=== PATIENT | male | born 1965 | race Two or more races ===

== ENCOUNTER 2024-02-25 09:25 | Inpatient (IN) | payer OTHER ==
[~2024-02-25] VITALS: Ht 177.8 cm; Wt 72.6 kg
[2024-02-25] MEDS ORDERED: ENBREL50 MG/1 M1 SQ (10:01)
--- NOTE | 2024-02-25 10:01 | NUR ---
PTE ALERTA Y ORIENTADO X3 REFIERE URIEL SIDO ENVIADO POR EL DR. LAINEZ A CHULA DE EMERGENCIAS PARA EVALUACION Y POSIBLE ADMISION DEBIDO A EPISODIO DE DIVERTICULITIS. AL MOMENTO DE TRIAGE PTE NIEGA VOMITOS O DIARREAS RECIENTES, NOTIFICA DOLOR ABDOMINAL. SE MIDEN SV Y SE UBICA.
[2024-02-25] MEDS ORDERED: PIPERACILLIN/TAZOBACTAM SODIUM 3.375 GM VIAL IV ONE ×3 (10:15→11:30)
[2024-02-25] MEDS ORDERED: 0.9 % SODIUM CHLORIDE 1,000 ML IV SCH (10:15)
--- NOTE | 2024-02-25 10:59 | NUR ---
PACIENTE ALERTA Y ORIENTADO X3. RN BROWN EDUCA A PACIENTE SOBRE PROCESO DE MAXIM DE MUESTRAS, CANALIZACION Y ADMINISTRACION DE MEDICAMENTOS, REFIERE ENTENDER. SE EJECUTAN ORDENES BAJO MEDIDAS ASEPTICAS. PENDIENTE A CONSULTA CON CIRUGIA.
[2024-02-25 11:25] LABS: HEMATOCRIT 42.8 % (39.0-48.0); HEMOGLOBIN 14.9 g/dL (13-16.00); MEAN CELL VOLUME 95.6 fL (80.0-100.00); MEAN CORPUSCULAR HEMOGLOBIN 33.2 pg (27.00-32.0); MEAN CORPUSCULAR HGB CONC 34.7 g/dl (32.0-36.0); PLATELET COUNT 260 K/uL (150-450); RED BLOOD COUNT 4.48 M/uL (4.00-6.00)
[2024-02-25] MEDS ORDERED: SODIUM CHLORIDE 0.45 % 1,000 ML IV SCH (11:30)
[2024-02-25] MEDS ORDERED: ONDANSETRON HCL 4 MG in 0.9 % SODIUM CHLORIDE 50 ML IV PRN (11:30)
[2024-02-25] MEDS ORDERED: PIPERACILLIN/TAZOBACTAM SODIUM 3.375 GM in DEXTROSE 5 % IN WATER 100 ML IV SCH (12:00)
[2024-02-25] MEDS ORDERED: FAMOTIDINE/PF 20 MG/2 ML VIAL ONE (12:04)
[2024-02-25 12:26] LABS: ALBUMIN 3.2 gm/dL (3.4-5.0); BILIRUBIN TOTAL 2.42 mg/dL (0.3-1.2); BILIRUBIN,CONJUGATED 0.5 mg/dL (0.0-0.2); BILIRUBIN,UNCONJUGATED 1.92 mg/dL (0.0-0.6); CALCIUM 9.3 mg/dL (8.5-10.1); CREATININE SERUM 1.02 mg/dL (0.70-1.30); GFR 74.25; POTASSIUM 4.43 mEq/L (3.5-5.1); TOTAL PROTEIN 6.7 gm/dL (6.4-8.2)
[2024-02-25] MEDS ORDERED: LACTOBACILLUS ACIDOPHILUS 1 CAP CAP PO ONE (13:16)
[2024-02-25] MEDS ORDERED: ENOXAPARIN SODIUM 40 MG/0.4 ML SYRINGE SUBCUTANEO ONE (13:16)
[2024-02-25] MEDS ORDERED: ENOXAPARIN SODIUM 40 MG/0.4 ML SYRINGE SUBCUTANEO NR (13:30)
[2024-02-25 14:15] VITALS: BP 100/67; O2SAT 95
[2024-02-25 15:12] LABS: PH,URINE 7.5 (5.0-8.0); URINE APPEARANCE Clear; URINE BILIRRUBIN Negative (NEGATIVE); URINE BLOOD Negative; URINE COLOR Yellow; URINE GLUCOSE Negative (NEGATIVE); URINE KETONE Negative (NEGATIVE); URINE LEUKOCYTE Negative; URINE NITRATE Negative; URINE PROTEIN Negative (NEGATIVE); URINE UROBILINOGEN 0.2 E.U./dl
[2024-02-25 15:16] LABS: URINE BACTERIA 6.1 uL (0.0-1933)
[2024-02-25 15:25] LABS: URINE EPITHELIAL CELLS 0.6 uL (0.0-38.8); URINE RBC 1.1 uL (0.0-20.8); URINE WBC 1.7 uL (0.0-23.2)
[2024-02-25 16:37] VITALS: BP 102/68; O2SAT 97
[2024-02-25] MEDS ORDERED: LACTOBACILLUS ACIDOPHILUS 1 CAP CAP PO SCH (17:00)
[2024-02-25] MEDS ORDERED: FAMOTIDINE/PF 20 MG in 0.9 % SODIUM CHLORIDE 8 ML IV PUSH SCH (17:00)
[2024-02-25] MEDS ORDERED: AMINO ACIDS 4.25 %/DEXTROSE 5% 1,000 ML PERIFERAL SCH (17:00)
[2024-02-26 00:42] VITALS: BP 116/69; O2SAT 98
[2024-02-26 07:00] LABS: HEMATOCRIT 41.7 % (39.0-48.0); HEMOGLOBIN 14.4 g/dL (13-16.00); MEAN CELL VOLUME 95.6 fL (80.0-100.00); MEAN CORPUSCULAR HEMOGLOBIN 33.1 pg (27.00-32.0); MEAN CORPUSCULAR HGB CONC 34.6 g/dl (32.0-36.0); PLATELET COUNT 248 K/uL (150-450); RED BLOOD COUNT 4.37 M/uL (4.00-6.00); RED CELL DISTRIBUTION WIDTH 13.1 % (11.5-14.5)
[2024-02-26 07:41] LABS: ALBUMIN 3.1 gm/dL (3.4-5.0); BILIRUBIN TOTAL 2.23 mg/dL (0.3-1.2); CALCIUM 9.2 mg/dL (8.5-10.1); CREATININE SERUM 0.95 mg/dL (0.70-1.30); GFR 80.6; GLOBULINA 3.4 G/DL (2.4-3.5); POTASSIUM 4.9 mEq/L (3.5-5.1); TOTAL PROTEIN 6.5 gm/dL (6.4-8.2)
[2024-02-26 07:47] LABS: C-REACTIVE PROTEIN 4.27 MG/DL (0.00-0.29)
[2024-02-26 08:05] VITALS: BP 119/69; O2SAT 99
[2024-02-26] MEDS ORDERED: ENOXAPARIN SODIUM 40 MG/0.4 ML SYRINGE SUBCUTANEO SCH (09:00)
[2024-02-26] MEDS ORDERED: VANCOMYCIN HCL 1,000 MG VIAL ONE ×2 (15:35→23:52)
[2024-02-26 16:15] VITALS: BP 107/66; O2SAT 98
[2024-02-26] MEDS ORDERED: VANCOMYCIN HCL 1,000 MG VIAL IV SCH (17:00)
[2024-02-26] MEDS ORDERED: MEROPENEM 500 MG/VIAL VIAL IV SCH (18:00)
[2024-02-27 00:23] VITALS: BP 122/65; O2SAT 100
[2024-02-27 08:43] VITALS: BP 113/60; O2SAT 99
[2024-02-27] MEDS ORDERED: ACETAMINOPHEN 500 MG GEL..CAP PO STA (11:10)
[2024-02-27] MEDS ORDERED: ACETAMINOPHEN 500 MG GEL..CAP PO PRN (11:15)
[2024-02-27] MEDS ORDERED: VANCOMYCIN HCL 1,000 MG VIAL ONE ×2 (14:19→23:35)
[2024-02-27 16:00] VITALS: BP 109/58; O2SAT 95
[2024-02-27] MEDS ORDERED: HYOSCYAMINE SULFATE 0.125 MG TAB.SUBL SL SCH (17:00)
[2024-02-28] VITALS: BP 111/72; O2SAT 96
[2024-02-28 07:44] LABS: HEMATOCRIT 40.5 % (39.0-48.0); HEMOGLOBIN 14.1 g/dL (13-16.00); MEAN CELL VOLUME 94.6 fL (80.0-100.00); MEAN CORPUSCULAR HEMOGLOBIN 32.9 pg (27.00-32.0); MEAN CORPUSCULAR HGB CONC 34.8 g/dl (32.0-36.0); PLATELET COUNT 240 K/uL (150-450); RED BLOOD COUNT 4.28 M/uL (4.00-6.00); RED CELL DISTRIBUTION WIDTH 12.9 % (11.5-14.5)
[2024-02-28 08:38] LABS: ALBUMIN 2.9 gm/dL (3.4-5.0); BILIRUBIN TOTAL 1.75 mg/dL (0.3-1.2); CREATININE SERUM 0.75 mg/dL (0.70-1.30); GFR 105.87; GLOBULINA 3.2 G/DL (2.4-3.5); MAGNESIUM 1.8 mg/dL (1.8-2.4); PHOSPHOROUS 2.9 mg/dL (2.5-4.9); POTASSIUM 4.37 mEq/L (3.5-5.1); TOTAL PROTEIN 6.1 gm/dL (6.4-8.2)
[2024-02-28 08:49] LABS: C-REACTIVE PROTEIN 1.84 MG/DL (0.00-0.29)
[2024-02-28 09:19] VITALS: BP 98/64; O2SAT 96
[2024-02-28] MEDS ORDERED: VANCOMYCIN HCL 1,000 MG VIAL ONE ×2 (14:33→22:55)
[2024-02-28 16:00] VITALS: BP 127/69; O2SAT 96
[2024-02-29 00:55] VITALS: BP 105/60; O2SAT 100
[2024-02-29 07:21] LABS: HEMATOCRIT 39.1 % (39.0-48.0); HEMOGLOBIN 13.9 g/dL (13-16.00); MEAN CELL VOLUME 93.9 fL (80.0-100.00); MEAN CORPUSCULAR HEMOGLOBIN 33.4 pg (27.00-32.0); MEAN CORPUSCULAR HGB CONC 35.5 g/dl (32.0-36.0); PLATELET COUNT 226 K/uL (150-450); RED BLOOD COUNT 4.17 M/uL (4.00-6.00); RED CELL DISTRIBUTION WIDTH 13.1 % (11.5-14.5)
[2024-02-29 07:36] LABS: PROTHROMBIN TIME 10.9 SECONDS (9.0-11.5)
[2024-02-29 07:45] VITALS: BP 1114/78; O2SAT 100
[2024-02-29 08:05] LABS: ALBUMIN 2.8 gm/dL (3.4-5.0); BILIRUBIN TOTAL 1.59 mg/dL (0.3-1.2); BILIRUBIN,CONJUGATED 0.37 mg/dL (0.0-0.2); BILIRUBIN,UNCONJUGATED 1.22 mg/dL (0.0-0.6); CALCIUM 9.2 mg/dL (8.5-10.1); CHOL HDL RATIO 4.3 (0-5.0); CREATININE SERUM 0.83 mg/dL (0.70-1.30); GFR 94.19; GLOBULINA 3.2 G/DL (2.4-3.5); MAGNESIUM 1.8 mg/dL (1.8-2.4); POTASSIUM 4.41 mEq/L (3.5-5.1)
[2024-02-29 09:54] LABS: UREA CLEARANCE 58.5 ML/MIN
[2024-02-29 16:30] VITALS: BP 121/63; O2SAT 97
[2024-02-29] MEDS ORDERED: VANCOMYCIN HCL 5 MG/ML REDILUIDO IV SCH (17:00)
[2024-03-01] VITALS: BP 120/64; O2SAT 98
[2024-03-01 08:05] VITALS: BP 105/68; O2SAT 96
[2024-03-01 19:41] VITALS: BP 115/72; O2SAT 99
[2024-03-02 00:30] VITALS: BP 141/63; O2SAT 100
[2024-03-02 08:28] VITALS: BP 116/56; O2SAT 98
[2024-03-02 16:00] VITALS: BP 118/77; O2SAT 99
[2024-03-03 01:24] VITALS: BP 109/56; O2SAT 98
[2024-03-03 08:00] VITALS: BP 129/67; O2SAT 99
[2024-03-03] MEDS ORDERED: DIATRIZOATE MEGLUMINE, SODIUM 30 ML BOTTLE PO NR (09:15)
[2024-03-03 10:11] LABS: HEMATOCRIT 42.4 % (39.0-48.0); MEAN CELL VOLUME 93.3 fL (80.0-100.00); MEAN CORPUSCULAR HGB CONC 35.4 g/dl (32.0-36.0); PLATELET COUNT 263 K/uL (150-450); RED BLOOD COUNT 4.55 M/uL (4.00-6.00); RED CELL DISTRIBUTION WIDTH 13.2 % (11.5-14.5)
[2024-03-03 11:03] LABS: CREATININE SERUM 0.76 mg/dL (0.70-1.30); GFR 104.27; MAGNESIUM 1.9 mg/dL (1.8-2.4); PHOSPHOROUS 2.4 mg/dL (2.5-4.9); POTASSIUM 4.58 mEq/L (3.5-5.1)
[2024-03-03 11:05] LABS: C-REACTIVE PROTEIN 1.2 MG/DL (0.00-0.29)
[2024-03-03] MEDS ORDERED: POTASSIUM PHOS,M-BASIC-D-BASIC 3 MM/ML VIAL IV NR (14:00)
[2024-03-03 16:00] VITALS: BP 118/70; O2SAT 100
[2024-03-04] VITALS: BP 110/56; O2SAT 97
[2024-03-04 08:00] VITALS: BP 99/75; O2SAT 98
[2024-03-04 17:00] VITALS: BP 106/76; O2SAT 97
[2024-03-05 00:56] VITALS: BP 100/66; O2SAT 100
[2024-03-05 08:00] VITALS: BP 101/69; O2SAT 98
[2024-03-05 17:28] VITALS: BP 125/82; O2SAT 99
[2024-03-06] VITALS: BP 100/67; O2SAT 96
[2024-03-06 08:00] VITALS: BP 98/66; O2SAT 98
[2024-03-06 16:00] VITALS: BP 119/72; O2SAT 98
[2024-03-07] VITALS: BP 93/51; O2SAT 94
[2024-03-07 07:00] LABS: HEMATOCRIT 38.1 % (39.0-48.0); HEMOGLOBIN 13.6 g/dL (13-16.00); MEAN CELL VOLUME 92.1 fL (80.0-100.00); MEAN CORPUSCULAR HEMOGLOBIN 32.9 pg (27.00-32.0); MEAN CORPUSCULAR HGB CONC 35.8 g/dl (32.0-36.0); PLATELET COUNT 229 K/uL (150-450); RED BLOOD COUNT 4.14 M/uL (4.00-6.00); RED CELL DISTRIBUTION WIDTH 13.3 % (11.5-14.5)
[2024-03-07 07:59] LABS: ALBUMIN 2.7 gm/dL (3.4-5.0); BILIRUBIN TOTAL 1.24 mg/dL (0.3-1.2); BILIRUBIN,CONJUGATED 0.27 mg/dL (0.0-0.2); BILIRUBIN,UNCONJUGATED 0.97 mg/dL (0.0-0.6); CALCIUM 9.1 mg/dL (8.5-10.1); CREATININE SERUM 0.71 mg/dL (0.70-1.30); GFR 112.79; MAGNESIUM 1.8 mg/dL (1.8-2.4); POTASSIUM 3.98 mEq/L (3.5-5.1); TOTAL PROTEIN 5.7 gm/dL (6.4-8.2)
[2024-03-07 08:00] VITALS: BP 106/71; O2SAT 96
[2024-03-07 09:39] LABS: INR 1.02; PROTHROMBIN TIME 11.1 SECONDS (9.0-11.5)
[2024-03-07 09:48] LABS: UREA CLEARANCE 60.9 ML/MIN
[2024-03-07 16:00] VITALS: BP 104/66; O2SAT 99
[2024-03-07] MEDS ORDERED: POLYETHYLENE GLYCOL 3350 17 GM BLIST.PACK PO STA (18:07)
[2024-03-08 01:09] VITALS: BP 118/57; O2SAT 100
[2024-03-08 08:00] VITALS: BP 107/70; O2SAT 99
[2024-03-08] MEDS ORDERED: HYOSCYAMINE0.125 M1 SL (08:17)
[2024-03-08] MEDS ORDERED: PEPCID AC20 MG PO (08:17)
== END 2024-03-08 16:52 | disposition home or self-care (01) | DRG 392 ==
LOC: ER 09:27 → SEC-K 12:33 → SURH 12:33
PROVIDERS: Emergency Medicine; Internal Medicine Geriatric Medicine; Internal Medicine Infectious Disease; ADMIT Surgery; ATTEND Surgery
PROC: 02HV33Z Insertion of Infusion Device into Superior Vena Cava, Percutaneous Approach (ICD-10-PCS; 2024-02-25)
PROC: 8E0ZXY6 Isolation (ICD-10-PCS; 2024-02-25)
PROC: BW21ZZZ Computerized Tomography (CT Scan) of Abdomen and Pelvis (ICD-10-PCS; principal; 2024-03-03)
DX: K57.20 Diverticulitis of large intestine with perforation and abscess without bleeding (principal); D84.9 Immunodeficiency, unspecified; E80.4 Gilbert syndrome; K52.9 Noninfective gastroenteritis and colitis, unspecified

== ENCOUNTER 2024-04-07 11:55 | Inpatient (IN) | payer OTHER ==
[~2024-04-07] VITALS: Ht 177.8 cm; Wt 68.9 kg
[~2024-04-07 11:55] MED LIST: ENBREL50 MG/1 M1 SQ; HYOSCYAMINE0.125 M1 SL; PEPCID AC20 MG PO
[2024-04-18] MEDS ORDERED: INTESTINEX680 M1 PO (11:52)
[2024-04-18] MEDS ORDERED: DICY20TA PO (11:53)
[2024-05-09] MEDS ORDERED: CEFTRIAXONE SODIUM 2,000 MG VIAL ONE (08:31)
[2024-05-09] MEDS ORDERED: LIDOCAINE HCL 1%/EPINEPHRINE 20ML VIAL IJ ONE (08:31)
[2024-05-09] MEDS ORDERED: BUPIVACAINE HCL/Mpf 0.5% 10ML VIAL ONE (08:31)
[2024-05-09] MEDS ORDERED: METRONIDAZOLE/SODIUM CHLORIDE 500 MG/100 ML PIGGYBACK IV ONE ×2 (08:32→16:40)
[2024-05-09] MEDS ORDERED: MORPHINE SULFATE 4 MG/ML CARTRIDGE IV PRN (13:00)
[2024-05-09] MEDS ORDERED: HYOSCYAMINE SULFATE 0.125 MG TAB.SUBL SL SCH (13:00)
[2024-05-09] MEDS ORDERED: DEXTROSE 50 % IN WATER 0.5 G/ML DISP.SYRIN IV PRN (13:00)
[2024-05-09] MEDS ORDERED: ONDANSETRON HCL 2 MG/ML VIAL IV PRN (13:00)
[2024-05-09] MEDS ORDERED: 0.9 % SODIUM CHLORIDE 1,000 ML IV SCH (13:00)
[2024-05-09] MEDS ORDERED: OxyCODONE HCL 5 MG TABLET (ROXICODONE) PO PRN (13:00)
[2024-05-09] MEDS ORDERED: MORPHINE SULFATE 4 MG/ML VIAL IV ONE ×3 (13:45→15:00)
[2024-05-09] MEDS ORDERED: ACETAMINOPHEN 500 MG GEL..CAP PO SCH (14:00)
[2024-05-09 14:42] LABS: HEMATOCRIT 40.6 % (39.0-48.0); HEMOGLOBIN 13.6 g/dL (13-16.00); MEAN CELL VOLUME 94.8 fL (80.0-100.00); MEAN CORPUSCULAR HEMOGLOBIN 31.9 pg (27.00-32.0); MEAN CORPUSCULAR HGB CONC 33.6 g/dl (32.0-36.0); PLATELET COUNT 243 K/uL (150-450); RED BLOOD COUNT 4.28 M/uL (4.00-6.00); RED CELL DISTRIBUTION WIDTH 15.6 % (11.5-14.5)
[2024-05-09 16:10] LABS: ALBUMIN 2.9 gm/dL (3.4-5.0); CALCIUM 8.9 mg/dL (8.5-10.1); CREATININE SERUM 1.06 mg/dL (0.70-1.30); GFR 71.02; MAGNESIUM 1.7 mg/dL (1.8-2.4); PHOSPHOROUS 3.2 mg/dL (2.5-4.9); POTASSIUM 4.33 mEq/L (3.5-5.1)
[2024-05-09] MEDS ORDERED: GABAPENTIN 300 MG CAPSULE PO SCH (17:00)
[2024-05-09] MEDS ORDERED: METRONIDAZOLE/SODIUM CHLORIDE 500 MG/100 ML PIGGYBACK IV SCH (17:00)
[2024-05-09] MEDS ORDERED: POLYETHYLENE GLYCOL 3350 17 GM BLIST.PACK PO SCH (17:00)
[2024-05-09 18:59] VITALS: BP 131/78; O2SAT 99
[2024-05-09] MEDS ORDERED: CELECOXIB 200 MG CAPSULE PO SCH (21:00)
[2024-05-09] MEDS ORDERED: FAMOTIDINE/PF 20 MG/2 ML VIAL IV PUSH SCH (21:00)
[2024-05-09] MEDS ORDERED: TAMSULOSIN HCL 0.4 MG CAP PO SCH (21:00)
[2024-05-10 00:48] VITALS: BP 108/47; O2SAT 100
[2024-05-10 07:27] LABS: HEMATOCRIT 39.4 % (39.0-48.0); HEMOGLOBIN 13.3 g/dL (13-16.00); MEAN CORPUSCULAR HEMOGLOBIN 32.4 pg (27.00-32.0); MEAN CORPUSCULAR HGB CONC 33.8 g/dl (32.0-36.0); PLATELET COUNT 235 K/uL (150-450); RED BLOOD COUNT 4.11 M/uL (4.00-6.00); RED CELL DISTRIBUTION WIDTH 15.1 % (11.5-14.5)
[2024-05-10 08:01] LABS: ALBUMIN 2.7 gm/dL (3.4-5.0); CALCIUM 8.9 mg/dL (8.5-10.1); CREATININE SERUM 0.81 mg/dL (0.70-1.30); GFR 96.88; PHOSPHOROUS 2.9 mg/dL (2.5-4.9); POTASSIUM 4.6 mEq/L (3.5-5.1)
[2024-05-10 09:55] VITALS: BP 114/73; BP 131/71; O2SAT 100; O2SAT 96
[2024-05-10] MEDS ORDERED: MEROPENEM 500 MG/VIAL VIAL IV SCH (14:00)
[2024-05-10] MEDS ORDERED: ENOXAPARIN SODIUM 40 MG/0.4 ML SYRINGE SUBCUTANEO SCH (17:00)
[2024-05-10] MEDS ORDERED: LINEZOLID IN DEXTROSE 5% 300 ML IV SCH (17:00)
[2024-05-10 19:00] VITALS: BP 120/70; O2SAT 100
[2024-05-11 00:59] VITALS: BP 106/62; O2SAT 97
[2024-05-11 08:00] VITALS: BP 92/60; O2SAT 96
[2024-05-11 08:22] LABS: HEMATOCRIT 35.6 % (39.0-48.0); HEMOGLOBIN 12.4 g/dL (13-16.00); MEAN CORPUSCULAR HEMOGLOBIN 32.8 pg (27.00-32.0); PLATELET COUNT 221 K/uL (150-450); RED BLOOD COUNT 3.79 M/uL (4.00-6.00); RED CELL DISTRIBUTION WIDTH 15.3 % (11.5-14.5)
[2024-05-11 08:53] LABS: CALCIUM 8.8 mg/dL (8.5-10.1); CREATININE SERUM 0.87 mg/dL (0.70-1.30); GFR 89.21; PHOSPHOROUS 2.3 mg/dL (2.5-4.9); POTASSIUM 3.9 mEq/L (3.5-5.1)
[2024-05-11] MEDS ORDERED: ENOXAPARIN SODIUM 40 MG/0.4 ML SYRINGE SUBCUTANEO SCH (09:00)
[2024-05-11] MEDS ORDERED: POTASSIUM PHOS,M-BASIC-D-BASIC 3 MM/ML VIAL IV NR (11:00)
[2024-05-11 16:00] VITALS: BP 104/54; O2SAT 97
[2024-05-11] MEDS ORDERED: OxyCODONE HCL 5 MG TABLET (ROXICODONE) PO PRN (22:30)
[2024-05-11 23:49] VITALS: BP 99/60; O2SAT 100
[2024-05-12 08:19] VITALS: BP 93/50; O2SAT 98
[2024-05-12 11:48] VITALS: BP 115/75
[2024-05-12 16:00] VITALS: BP 109/66; O2SAT 98
[2024-05-12] MEDS ORDERED: FAMOtidine 20 MG TABLET PO SCH (21:00)
[2024-05-13 00:23] VITALS: BP 105/51; O2SAT 100
[2024-05-13 08:00] VITALS: BP 108/73; O2SAT 99
[2024-05-13 16:00] VITALS: BP 104/69; O2SAT 99
[2024-05-14 00:33] VITALS: BP 108/74; O2SAT 100
[2024-05-14 08:00] VITALS: BP 110/70; O2SAT 100
[2024-05-14 08:46] LABS: HEMATOCRIT 36.1 % (39.0-48.0); HEMOGLOBIN 12.5 g/dL (13-16.00); MEAN CELL VOLUME 94.2 fL (80.0-100.00); MEAN CORPUSCULAR HEMOGLOBIN 32.7 pg (27.00-32.0); MEAN CORPUSCULAR HGB CONC 34.8 g/dl (32.0-36.0); PLATELET COUNT 241 K/uL (150-450); RED BLOOD COUNT 3.83 M/uL (4.00-6.00); RED CELL DISTRIBUTION WIDTH 14.8 % (11.5-14.5)
[2024-05-14 09:10] LABS: CALCIUM 8.8 mg/dL (8.5-10.1); CREATININE SERUM 0.91 mg/dL (0.70-1.30); GFR 84.7; MAGNESIUM 1.8 mg/dL (1.8-2.4); PHOSPHOROUS 3.1 mg/dL (2.5-4.9); POTASSIUM 4.07 mEq/L (3.5-5.1)
[2024-05-14 16:00] VITALS: BP 112/69; O2SAT 99
[2024-05-15 00:20] VITALS: BP 106/61; O2SAT 98
[2024-05-15 09:01] VITALS: BP 103/63; O2SAT 98
[2024-05-15 16:00] VITALS: BP 115/69; O2SAT 100
[2024-05-16 00:40] VITALS: BP 112/65; O2SAT 97
[2024-05-16 08:00] VITALS: BP 112/68; O2SAT 98
[2024-05-16] MEDS ORDERED: PEPCID AC20 MG PO (10:26)
[2024-05-16] MEDS ORDERED: HYOSCYAMINE0.125 M1 SL (10:26)
== END 2024-05-16 12:36 | disposition home or self-care (01) | DRG 329 ==
LOC: SURH 04-14 12:15 → O/R 05-09 06:00 → SURH 05-09 07:00 → SURG 05-09 15:11 → SURH 05-09 17:16
PROVIDERS: Internal Medicine Geriatric Medicine; ADMIT Surgery; ATTEND Surgery
PROC: 0DBP4ZZ Excision of Rectum, Percutaneous Endoscopic Approach (ICD-10-PCS; 2024-05-09)
PROC: 0DB84ZZ Excision of Small Intestine, Percutaneous Endoscopic Approach (ICD-10-PCS; 2024-05-09)
PROC: 0DJD8ZZ Inspection of Lower Intestinal Tract, Via Natural or Artificial Opening Endoscopic (ICD-10-PCS; 2024-05-09)
PROC: 8E0ZXY6 Isolation (ICD-10-PCS; 2024-05-09)
PROC: 0DBU4ZZ Excision of Omentum, Percutaneous Endoscopic Approach (ICD-10-PCS; 2024-05-09)
PROC: 0DTN4ZZ Resection of Sigmoid Colon, Percutaneous Endoscopic Approach (ICD-10-PCS; principal; 2024-05-09 07:00)
PROC: BW2GYZZ Computerized Tomography (CT Scan) of Pelvic Region using Other Contrast (ICD-10-PCS; 2024-05-11)
DX: K57.20 Diverticulitis of large intestine with perforation and abscess without bleeding (principal); K65.8 Other peritonitis; K63.2 Fistula of intestine; D84.9 Immunodeficiency, unspecified; R19.5 Other fecal abnormalities; K66.0 Peritoneal adhesions (postprocedural) (postinfection); I95.2 Hypotension due to drugs; T50.995A Adverse effect of other drugs, medicaments and biological substances, initial encounter

== ENCOUNTER 2024-04-11 13:55 | Inpatient (IN) | payer OTHER ==
[~2024-04-11] VITALS: Ht 177.8 cm; Wt 72.6 kg
[2024-04-11] MEDS ORDERED: 0.9 % SODIUM CHLORIDE 500 ML IV ONE (16:45)
[2024-04-11] MEDS ORDERED: MEROPENEM 1,000 MG VIAL IV ONE (16:45)
[2024-04-11 17:42] LABS: HEMATOCRIT 42.7 % (39.0-48.0); HEMOGLOBIN 14.3 g/dL (13-16.00); MEAN CELL VOLUME 95.5 fL (80.0-100.00); MEAN CORPUSCULAR HEMOGLOBIN 32.1 pg (27.00-32.0); MEAN CORPUSCULAR HGB CONC 33.6 g/dl (32.0-36.0); PLATELET COUNT 276 K/uL (150-450); RED BLOOD COUNT 4.47 M/uL (4.00-6.00); RED CELL DISTRIBUTION WIDTH 14.8 % (11.5-14.5)
[2024-04-11 17:50] LABS: PH,URINE 5.5 (5.0-8.0); URINE APPEARANCE Clear; URINE BILIRRUBIN Negative (NEGATIVE); URINE BLOOD Negative; URINE COLOR Yellow; URINE GLUCOSE Negative (NEGATIVE); URINE KETONE Negative (NEGATIVE); URINE LEUKOCYTE Negative; URINE NITRATE Negative; URINE PROTEIN Negative (NEGATIVE); URINE UROBILINOGEN 0.2 E.U./dl
[2024-04-11 18:05] LABS: INR 1.07; PROTHROMBIN TIME 11.6 SECONDS (9.0-11.5)
[2024-04-11 18:10] LABS: ALBUMIN 3.3 gm/dL (3.4-5.0); BILIRUBIN TOTAL 1.39 mg/dL (0.3-1.2); CALCIUM 8.9 mg/dL (8.5-10.1); CREATININE SERUM 1.12 mg/dL (0.70-1.30); GFR 66.65; GLOBULINA 3.4 G/DL (2.4-3.5); POTASSIUM 3.92 mEq/L (3.5-5.1); TOTAL PROTEIN 6.7 gm/dL (6.4-8.2)
[2024-04-11 18:13] LABS: URINE BACTERIA 2.4 uL (0.0-1933); URINE EPITHELIAL CELLS 0.6 uL (0.0-38.8); URINE RBC 1.4 uL (0.0-20.8); URINE WBC 0.3 uL (0.0-23.2)
[2024-04-11] MEDS ORDERED: FAMOTIDINE/PF 20 MG in 0.9 % SODIUM CHLORIDE 8 ML IV PUSH SCH (18:26)
[2024-04-11] MEDS ORDERED: 0.9 % SODIUM CHLORIDE 1,000 ML IV SCH (18:30)
[2024-04-11] MEDS ORDERED: MORPHINE SULFATE 2 MG/ML CARTRIDGE IV PRN (18:30)
[2024-04-11] MEDS ORDERED: FAMOTIDINE/PF 20 MG/2 ML VIAL ONE (18:59)
[2024-04-11] MEDS ORDERED: VANCOMYCIN HCL 5 MG/ML REDILUIDO IV SCH (21:00)
[2024-04-11] MEDS ORDERED: VANCOMYCIN HCL 1,000 MG VIAL IV SCH (21:00)
[2024-04-12] MEDS ORDERED: MEROPENEM 500 MG/VIAL VIAL IV SCH
[2024-04-12 00:43] VITALS: BP 125/74; O2SAT 97
[2024-04-12 07:38] LABS: HEMATOCRIT 39.4 % (39.0-48.0); HEMOGLOBIN 13.4 g/dL (13-16.00); MEAN CELL VOLUME 94.6 fL (80.0-100.00); MEAN CORPUSCULAR HEMOGLOBIN 32.2 pg (27.00-32.0); PLATELET COUNT 247 K/uL (150-450); RED BLOOD COUNT 4.17 M/uL (4.00-6.00); RED CELL DISTRIBUTION WIDTH 14.7 % (11.5-14.5)
[2024-04-12] MEDS ORDERED: ACETAMINOPHEN 500 MG GEL..CAP PO PRN (07:45)
[2024-04-12 08:00] VITALS: BP 105/67; O2SAT 99
[2024-04-12 08:44] LABS: CALCIUM 8.6 mg/dL (8.5-10.1); CREATININE SERUM 1.07 mg/dL (0.70-1.30); GFR 70.26; MAGNESIUM 1.8 mg/dL (1.8-2.4); PHOSPHOROUS 2.9 mg/dL (2.5-4.9); POTASSIUM 4.26 mEq/L (3.5-5.1)
[2024-04-12] MEDS ORDERED: ENOXAPARIN SODIUM 40 MG/0.4 ML SYRINGE SUBCUTANEO SCH (09:00)
[2024-04-12] MEDS ORDERED: AMINO ACIDS 4.25 %/DEXTROSE 5% 1,000 ML PERIFERAL SCH (17:00)
[2024-04-12] MEDS ORDERED: DIPHENHYDRAMINE HCL 50 MG/ML VIAL 1ML IV NR (17:15)
[2024-04-12 18:01] VITALS: BP 109/68; O2SAT 97
[2024-04-13 01:06] VITALS: BP 113/62; O2SAT 100
[2024-04-13 08:00] VITALS: BP 101/62; O2SAT 98
[2024-04-13 17:00] VITALS: BP 112/60; O2SAT 98
[2024-04-13] MEDS ORDERED: fentaNYL CITRATE 50 MCG/ML AMPUL IV PUSH ONE (19:00)
[2024-04-13] MEDS ORDERED: MIDAZOLAM HCL 2 MG/2 ML VIAL IV PUSH ONE (19:00)
[2024-04-14 01:16] VITALS: BP 101/67; O2SAT 100
[2024-04-14] MEDS ORDERED: HYOSCYAMINE SULFATE 0.125 MG TAB.SUBL SL PRN (07:30)
[2024-04-14] MEDS ORDERED: LACTOBACILLUS ACIDOPHILUS 1 CAP CAP PO SCH (09:00)
[2024-04-14 10:49] VITALS: BP 117/67; O2SAT 100
[2024-04-14 18:41] VITALS: BP 111/56; O2SAT 99
[2024-04-14] MEDS ORDERED: LINEZOLID IN DEXTROSE 5% 300 ML IV SCH (21:00)
[2024-04-15] VITALS: BP 132/79; O2SAT 98
[2024-04-15 06:58] LABS: HEMATOCRIT 37.9 % (39.0-48.0); HEMOGLOBIN 13.1 g/dL (13-16.00); MEAN CORPUSCULAR HEMOGLOBIN 32.6 pg (27.00-32.0); MEAN CORPUSCULAR HGB CONC 34.7 g/dl (32.0-36.0); PLATELET COUNT 231 K/uL (150-450); RED BLOOD COUNT 4.03 M/uL (4.00-6.00); RED CELL DISTRIBUTION WIDTH 14.5 % (11.5-14.5)
[2024-04-15 07:45] LABS: CALCIUM 8.4 mg/dL (8.5-10.1); CREATININE SERUM 0.64 mg/dL (0.70-1.30); GFR 127.14; MAGNESIUM 1.8 mg/dL (1.8-2.4); PHOSPHOROUS 2.8 mg/dL (2.5-4.9); POTASSIUM 4.1 mEq/L (3.5-5.1)
[2024-04-15 07:56] LABS: C-REACTIVE PROTEIN 2.41 MG/DL (0.00-0.29)
[2024-04-15 09:13] VITALS: BP 109/65; O2SAT 99
[2024-04-15] MEDS ORDERED: AA 2.36%/D6.8W/FAT/E-LYTES NO9 1,440 ML IV SCH (17:00)
[2024-04-15 18:28] VITALS: BP 117/73; O2SAT 99
[2024-04-16 00:30] VITALS: BP 117/74; O2SAT 99
[2024-04-16 12:02] VITALS: BP 108/65; O2SAT 98
[2024-04-16 16:00] VITALS: BP 106/67; O2SAT 98
[2024-04-17 01:30] VITALS: BP 113/63; O2SAT 97
[2024-04-17 08:00] VITALS: BP 117/72; O2SAT 100
[2024-04-17 16:52] VITALS: BP 104/65; O2SAT 98
[2024-04-18] VITALS: BP 105/55; O2SAT 97
[2024-04-18 07:08] LABS: HEMATOCRIT 36.3 % (39.0-48.0); HEMOGLOBIN 12.8 g/dL (13-16.00); MEAN CELL VOLUME 93.2 fL (80.0-100.00); MEAN CORPUSCULAR HEMOGLOBIN 32.7 pg (27.00-32.0); MEAN CORPUSCULAR HGB CONC 35.1 g/dl (32.0-36.0); PLATELET COUNT 202 K/uL (150-450); RED CELL DISTRIBUTION WIDTH 14.5 % (11.5-14.5)
[2024-04-18 07:46] LABS: ALBUMIN 2.5 gm/dL (3.4-5.0); BILIRUBIN TOTAL 0.99 mg/dL (0.3-1.2); CALCIUM 8.6 mg/dL (8.5-10.1); CREATININE SERUM 0.84 mg/dL (0.70-1.30); GFR 92.89; MAGNESIUM 1.9 mg/dL (1.8-2.4); PHOSPHOROUS 3.7 mg/dL (2.5-4.9); POTASSIUM 4.13 mEq/L (3.5-5.1); TOTAL PROTEIN 5.5 gm/dL (6.4-8.2)
[2024-04-18 07:48] LABS: C-REACTIVE PROTEIN 2.37 MG/DL (0.00-0.29)
[2024-04-18 08:00] VITALS: BP 112/65; O2SAT 98
[2024-04-18] MEDS ORDERED: INTESTINEX680 M1 PO (11:52)
[2024-04-18] MEDS ORDERED: DICY20TA PO (11:53)
[2024-04-18 16:00] VITALS: BP 102/56; O2SAT 99
[2024-04-19] VITALS: BP 103/66; O2SAT 98
[2024-04-19 08:00] VITALS: BP 143/78; O2SAT 99
== END 2024-04-19 14:25 | disposition home or self-care (01) | DRG 391 ==
LOC: ER 13:58 → SURH 19:10
PROVIDERS: General Practice; ADMIT Internal Medicine Geriatric Medicine; ATTEND Internal Medicine Geriatric Medicine
PROC: 0W9G30Z Drainage of Peritoneal Cavity with Drainage Device, Percutaneous Approach (ICD-10-PCS; principal; 2024-04-13)
PROC: 02HV33Z Insertion of Infusion Device into Superior Vena Cava, Percutaneous Approach (ICD-10-PCS; 2024-04-13)
PROC: 3E04329 Introduction of Other Anti-infective into Central Vein, Percutaneous Approach (ICD-10-PCS; 2024-04-13)
PROC: 3E0436Z Introduction of Nutritional Substance into Central Vein, Percutaneous Approach (ICD-10-PCS; 2024-04-13)
DX: K57.20 Diverticulitis of large intestine with perforation and abscess without bleeding (principal); K65.1 Peritoneal abscess